=== PATIENT | female | born 1960 | race Caucasian/White ===

== ENCOUNTER 2024-11-07 19:05 | Emergency (ER) | payer OTHER ==
[~2024-11-07] VITALS: Ht 172.7 cm; Wt 70.0 kg
[2024-11-07] MEDS ORDERED: NEOMYCIN-BACITRACIN-POLYMYXIN 0.5 GM/PAK PAK TOP ONE (19:55)
[2024-11-07] MEDS ORDERED: POVIDONE IODINE 0.5 OZ/BTL TOP ONE (19:55)
[2024-11-07] MEDS ORDERED: Diph, Acellular Pertussis, Tet 0.5 ML/VIAL (Tdap) SDV IM ONE (19:55)
[2024-11-07 20:30] VITALS: BP 121/75
== END 2024-11-07 20:30 | disposition home or self-care (01) ==
LOC: ED 19:05
DX: S61.215A Laceration without foreign body of left ring finger without damage to nail, initial encounter (principal); W01.110A Fall on same level from slipping, tripping and stumbling with subsequent striking against sharp glass, initial encounter
CPT/HCPCS: 90715